=== PATIENT | male | born 1945 | race Caucasian/White ===

== ENCOUNTER 2019-04-28 22:28 | Inpatient (IN) | payer MEDICARE, OTHER ==
[~2019-04-28] VITALS: Ht 167.6 cm; Wt 56.2 kg
[2019-04-29] MEDS ORDERED: ACET-2154 PO (00:09)
[2019-04-29] MEDS ORDERED: MAGN400O6 PO (00:09)
[2019-04-29] MEDS ORDERED: MAGNESIUM HYDROXIDE 30 ML LIQUID UDC PO PRN ×2 (02:15→13:00)
[2019-04-29] MEDS ORDERED: CLONAZEPAM 0.5 MG TABLET PO PRN (02:15)
[2019-04-29] MEDS ORDERED: ACETAMINOPHEN 325 MG TABLET PO PRN ×2 (02:15→13:00)
[2019-04-29] MEDS ORDERED: MAG HYDROX/AL HYDROX/SIMETH 30 ML LIQUID UDC PO PRN (02:15)
[2019-04-29] MEDS ORDERED: BLOOD SUGAR DIAGNOSTIC 1 EACH STRIP VI ONE (02:15)
[2019-04-29] MEDS ORDERED: TEMAZEPAM 7.5 MG CAPSULE PO PRN (02:15)
[2019-04-29] MEDS: OLANZAPINE ZYDIS 5 MG TAB.RAPDIS PO SCH ×2 (12:30→17:00)
[2019-04-30] MEDS: OLANZAPINE ZYDIS 5 MG TAB.RAPDIS PO SCH ×2 (09:00→17:00)
[2019-04-30 19:50] LABS: *BILIRUBIN,URIN NEGATIVE (NEGATIVE); *BLOOD, URINE NEGATIVE (NEGATIVE); *CLARITY,URINE CLEAR (CLEAR); *COLOR,URINE YELLOW (YELLOW); *KETONES,URINE NEGATIVE (NEGATIVE); *UROBILINOGEN,URINE 0.2 E.U./dl (NORMAL); LEUKOCYTE ESTERASE ,URINE NEGATIVE (NEGATIVE); NITRITE, URINE NEGATIVE (NEGATIVE); PH,URINE 5.5 (5.0-8.0); UGLUCOSE NEGATIVE (NEGATIVE)
[2019-05-01] MEDS: OLANZAPINE ZYDIS 5 MG TAB.RAPDIS PO SCH ×3 (08:59→17:36)
[2019-05-02] MEDS: OLANZAPINE ZYDIS 5 MG TAB.RAPDIS PO SCH ×2 (08:07→17:00)
[2019-05-03] MEDS: OLANZAPINE ZYDIS 5 MG TAB.RAPDIS PO SCH ×2 (08:25→16:45)
[2019-05-03] MEDS: NITROFURANTOIN/NITROFURAN MAC 100 MG CAPSULE PO SCH ×2 (11:07→20:24)
[2019-05-04] MEDS: OLANZAPINE ZYDIS 5 MG TAB.RAPDIS PO SCH ×2 (08:49→16:44)
[2019-05-04] MEDS: NITROFURANTOIN/NITROFURAN MAC 100 MG CAPSULE PO SCH ×2 (08:49→21:00)
[2019-05-04] MEDS ORDERED: HALOPERIDOL LACTATE 5 MG/1 ML VIAL IM SCH (10:15)
[2019-05-04] MEDS: OLANZAPINE 10 MG VIAL IM SCH ×2 (11:23→16:35)
[2019-05-05] MEDS: NITROFURANTOIN/NITROFURAN MAC 100 MG CAPSULE PO SCH ×2 (09:00→20:10)
[2019-05-05] MEDS: OLANZAPINE ZYDIS 5 MG TAB.RAPDIS PO SCH ×2 (09:00→17:00)
[2019-05-05] MEDS ORDERED: OLANZAPINE 10 MG VIAL IM SCH (17:00)
[2019-05-06] MEDS: NITROFURANTOIN/NITROFURAN MAC 100 MG CAPSULE PO SCH ×2 (09:00→20:09)
[2019-05-06] MEDS: OLANZAPINE ZYDIS 5 MG TAB.RAPDIS PO SCH ×2 (09:00→16:50)
[2019-05-06] MEDS: OLANZAPINE 10 MG VIAL IM PRN ×2 (09:07→16:51)
[2019-05-07] MEDS: OLANZAPINE 10 MG VIAL IM PRN ×3 (08:43→21:55)
[2019-05-07] MEDS: NITROFURANTOIN/NITROFURAN MAC 100 MG CAPSULE PO SCH ×2 (08:44→21:00)
[2019-05-07] MEDS: OLANZAPINE ZYDIS 5 MG TAB.RAPDIS PO SCH ×2 (08:44→21:00)
[2019-05-08] MEDS: NITROFURANTOIN/NITROFURAN MAC 100 MG CAPSULE PO SCH ×2 (09:00→20:24)
[2019-05-08] MEDS: OLANZAPINE ZYDIS 5 MG TAB.RAPDIS PO SCH ×2 (09:00→20:25)
[2019-05-08] MEDS ORDERED: OLANZAPINE 10 MG VIAL IM PRN ×2 (09:15→09:30)
[2019-05-08 15:42] VITALS: BP 110/67
[2019-05-09 07:30] VITALS: BP 121/61
[2019-05-09] MEDS: NITROFURANTOIN/NITROFURAN MAC 100 MG CAPSULE PO SCH ×2 (08:52→20:03)
[2019-05-09] MEDS: OLANZAPINE ZYDIS 5 MG TAB.RAPDIS PO SCH ×2 (08:53→20:04)
[2019-05-09 15:12] VITALS: BP 119/72
[2019-05-09 19:59] VITALS: BP 122/77
[2019-05-10 07:30] VITALS: BP 129/76
[2019-05-10] MEDS: NITROFURANTOIN/NITROFURAN MAC 100 MG CAPSULE PO SCH (08:28)
[2019-05-10] MEDS: OLANZAPINE ZYDIS 5 MG TAB.RAPDIS PO SCH (08:29)
== END 2019-05-10 14:15 | DRG 885 ==
LOC: ER 22:32 → MEDSURG3 04-29 00:30 → GPSOV3 04-29 01:44 → GPS 05-01 18:47
PROVIDERS: ADMIT Psychiatry & Neurology Psychiatry; ATTEND Registered Nurse
DX: F29 Unspecified psychosis not due to a substance or known physiological condition (principal); B95.2 Enterococcus as the cause of diseases classified elsewhere; N39.0 Urinary tract infection, site not specified; E46 Unspecified protein-calorie malnutrition; I25.10 Atherosclerotic heart disease of native coronary artery without angina pectoris; F20.0 Paranoid schizophrenia; H54.8 Legal blindness, as defined in USA; Z68.20 Body mass index [BMI] 20.0-20.9, adult
CPT/HCPCS: 87077; 87086; 93005; A4663; J2358